=== PATIENT | male | born 1965 | race Caucasian/White ===

== ENCOUNTER 2022-04-12 17:03 | Emergency (ER) | payer OTHER ==
[~2022-04-12] VITALS: Ht 182.9 cm; Wt 93.0 kg
[~2022-04-12 17:03] MED LIST: DOXYCYCLINE HY100 MG PO; PERCOCET 5-3251 EACH PO
[2022-04-12] MEDS ORDERED: FAMOTIDINE20 MG PO (18:58)
[2022-04-12] MEDS ORDERED: VOLTAREN ARTHRI20 GM TOP (18:58)
[2022-04-12] MEDS ORDERED: TOPROL XL25 MG PO (18:58)
[2022-04-12] MEDS ORDERED: VENTOLIN HFA18 GM INH (18:59)
[2022-04-12] MEDS ORDERED: FLUTICASONE-SA1 EAC3 INH (19:00)
[2022-04-12] MEDS ORDERED: WARFARIN SODIUM5 MG PO (19:19)
[2022-04-12] MEDS ORDERED: LOVENOX80 MG/0.8 SUB-Q (19:19)
--- NOTE | 2022-04-13 06:33 | EKG ---
[facility] [address] [facility] [place], [place] [address] Signed Atrial flutter with 2:1 AV conduction Abnormal ECG No previous ECGs available Confirmed by MARIAM KHALIL MD ([id number]) on 04/13/2022 6:33:21 AM Electronically Signed By: MARIAM KHALIL MD 04/13/22 0633 PATIENT NAME: GINA TO Electrocardiogram DATE OF : 67 PHYSICIAN: MARIAM KHALIL MD REPORT #: [id number] REPORT IS CONFIDENTIAL AND NOT TO BE RELEASED WITHOUT AUTHORIZATION
== END 2022-04-12 20:12 | disposition home or self-care (01) ==
LOC: ED 17:03
DX: I48.91 Unspecified atrial fibrillation (principal); I48.92 Unspecified atrial flutter; J45.909 Unspecified asthma, uncomplicated; Z88.0 Allergy status to penicillin; Z91.048 Other nonmedicinal substance allergy status; Z79.899 Other long term (current) drug therapy
CPT/HCPCS: 36415; 71045; 80053; 83735; 83880; 84484; 85025; 85610; 85730; 93005; 93010; 96374; 99285-25; J1650

== ENCOUNTER 2022-04-19 09:14 | Observation (INO) | payer OTHER ==
[~2022-04-19] VITALS: Ht 182.9 cm; Wt 91.8 kg
[~2022-04-19 09:14] MED LIST changes: +FAMOTIDINE20 MG PO; +FLUTICASONE-SA1 EAC3 INH; +LOVENOX80 MG/0.8 SUB-Q; +TOPROL XL25 MG PO; +VENTOLIN HFA18 GM INH; +VOLTAREN ARTHRI20 GM TOP; +WARFARIN SODIUM5 MG PO
--- OUTSIDE RECORDS SUMMARY | 2022-04-19 09:24 | XMS ---
PreManage Notification: GINA TO Security Police Booking Officer Events No recent Security Events currently on file CRITERIA MET - [facility] - 2 Visits in 30 Days CARE PROVIDERS There are no care providers on record at this time. Mallory has no Care Guidelines for this patient. [facility] (12 MO.) [facility] NOTE: Visits indicate total known visits. ED[facility] VISIT TRACKING (12 MO.) 04[facility]19[facility]2022 09:15 [facility] COMPLAINT: - IRREGULAR HEART BEAT 04/12/2022 17:04 [facility] [place] TYPE: Emergency COMPLAINT: - RAPID HEART RATE DIAGNOSES: - Unspecified atrial fibrillation - Other nonmedicinal substance allergy status - Allergy status to penicillin - Unspecified atrial flutter - Tachycardia, unspecified - Other intermodal truck driver (current) drug therapy - Unspecified asthma, uncomplicated INPATIENT VISIT TRACKING (12 MO.) No inpatient visits to display in this time frame [email or web address]
[2022-04-19] MEDS ORDERED: LANOXIN125 MCG PO (11:41)
--- NOTE | 2022-04-19 15:55 | EKG ---
[facility] [address] [facility] [place] [address] Signed Atrial flutter with 2:1 AV conduction Abnormal ECG When compared with ECG of 12-APR-2022 17:04, No significant change was found Confirmed by BEATRIS HINSON MD ([id number]) on 04/19/2022 3:55:39 PM Electronically Signed By: BEATRIS HINSON MD 04/19/22 1555 PATIENT NAME: GINA TO LYNDON Electrocardiogram DATE OF : 67 PHYSICIAN: BEATRIS HINSON MD REPORT #: [id number] REPORT IS CONFIDENTIAL AND NOT TO BE RELEASED WITHOUT AUTHORIZATION
--- NOTE | 2022-04-19 16:00 | NUR ---
CARDIZEM GTT HUNG AT 5 MG/HR. EDUCATION ON CARDIZEM GIVEN.
--- NOTE | 2022-04-19 16:33 | NUR ---
57 YEAR OLD MALE PATIENT ADMITTED TO CCU FROM ED VIA STRETCHER WITH DX OF AFLUTTER. PATIENT RECIEVED CARDIZEM IV, DIGOXIN PO, LOPRESSOR PO. IN ED. PATIENT HAS BEEN IN ED IS THE PAST FOR AFLUTTER RVR, WAS DISCHARGED ON CARDIZEM PO. UPON ADMIT TO CCU PATIENT IS AWAKE ALERT AND ORIENTED. DENEIS PAIN OF SHORTNESS OF BREATH E[facility] OFFICERS ARE WITH PATIENT.HR-120. ADMISSION PROCESS STAARTED.
--- NOTE | 2022-04-19 17:00 | NUR ---
SEE EMAR FOR TITRATION OF CARDIZEM GTT. PATIENT IS W/OO C/O.
[2022-04-19] MEDS ORDERED: TOPROL XL50 MG PO (17:54)
[2022-04-19] MEDS ORDERED: VITAMIN D325 MC2 PO (17:56)
[2022-04-19] MEDS ORDERED: TRIAMCINOLONE A15 G1 TOP (17:59)
--- NOTE | 2022-04-19 19:05 | NUR ---
TOOK DINNER WELL. BETZAIDA BONNER GTT INFUSING AT 5 MG/HR. DR HINSON HAS BEEN UPDATE ON PATEINT. GOAL FOR HR IS 60-80. VOIDED 60 ML OF CLEAR YELLOW URINE.
--- NOTE | 2022-04-19 20:00 | NUR ---
SHIFT ASSESMENT COMPLETED. PATIENT REPORTS LEFT SHOULDER PAIN 03/09. ICE LUANA APPLIED. DENIES CHEST PAIN OR SOB. REMAINS IN A-FLUTTER. VS STABLE. CALL LILGHT IN REACH. CAN MAKE NEEDS KNOWN. TWO INMATE GUARDS AT BEDSIDE.
--- NOTE | 2022-04-19 21:00 | NUR ---
DR HINSON NOTIFIED OF BP OF 89/58 MAP 69. ORDERS RECIEVED FOR A ONE TIME 500ML LR BOLUS. ORDERS TO TRY AND MAINTAIN CARDIZEM GTT AT 5MG/HR IF PRESSURES ALLOW. ALSO NOTIFIED OF PATIENTS LEFT SHOULDER PAIN UNRESOLVED WITH TYLENOL, HEAT, AND ICE. HE STATED HE WOULD ORDER SOMETHING MORE.
--- NOTE | 2022-04-19 22:19 | NUR ---
500ML LR BOLUS COMPLETED. VS STABLE. CARDIZEM REMAINS AT 5MG/HR. PATIENT HAS HEAT PACK TO LEFT SHOULDER. CALL LIGHT IN REACH. CAN MAKE NEEDS KNOWN.
--- NOTE | 2022-04-20 00:12 | NUR ---
PATIENT UP TO THE BEDSIDE TO VOID USING URIANL. VS STABLE. REMAINS IN A FLUTTER. CALL LIGHT IN REACH AND CAN MAKE NEEDS KNOWN.
--- NOTE | 2022-04-20 02:30 | NUR ---
PATIENT RESTING IN BED WITH EYES CLOSED. RESPIRATIONS EVEN AND UNLABORED. VS STABLE. CARDIZEM GTT REMIANS AT 5MG/HR. TWO GUARDS REMAIN AT BEDSIDE.
--- NOTE | 2022-04-20 04:00 | NUR ---
RESTING IN BED. RESPIRATIONS EVEN AND UNLABORED. VS STABLE
--- NOTE | 2022-04-20 06:29 | NUR ---
PATIENT CALLED TO USE THE BEDSIDE URINAL. INDEPENDENT AMBULATION TO SIDE OF THE BED. PROVIDED A WET RAG TO WASH HIS FACE. REQUESTED PRN MEDS TO MANAGE LEFT SHOULDER PAIN. RATES PAIN 6/10.
--- NOTE | 2022-04-20 07:10 | NUR ---
MED REC COMPLETE
--- NOTE | 2022-04-20 07:44 | NUR ---
PATIENT REPORT RECIEVED FROM VICE PRESIDENT OF PRODUCT MARKETING RN. PATIENT RESTING IN BED WITH 2 GAURDS AT THE BEDSIDE. VICE PRESIDENT OF PRODUCT MARKETING HERE AND DOING THE ECHO AT THIS TIME. NO OTHER NEEDS. WILL CONTINUE TO CLOSELY MONITOR.
--- NOTE | 2022-04-20 08:20 | NUR ---
Spoke with pt and he denies needs. Correctional officers in the room. He does not use any DME at [facility] and will return there on dc.
--- NOTE | 2022-04-20 08:29 | NUR ---
PATIENT UP IN CHAIR, NURSE NOTFIED. CORECCTIONAL OFFICERS IN ROOM X2. CALL LIGHT WITHIN REACH.
--- NOTE | 2022-04-20 09:00 | NUR ---
THIS RN IN TO ASSESS PATIENT. PATIENTS BREATH SOUNDS CLEAR. BOWEL TONES ACTIVE. PATIENT REMAINS IN A.FLUTTER. EDUCATION PROVIDED. PATIENT UP TO THE CHAIR. PATIENT DENIES DIZZINESS WITH POSITION CHANGES OR AMBULATION. PATIENT DENIES PAIN. PER PATIENT HE HAD A BM YESTERDAY. NO EDEMA NOTED. STRONG PULSES. PATIENT HAS SHACKLES TO ALL EXTREMITIES. SKIN IS CDI. CMS INTACT. WILL CONTINUE TO CLOSELY MONITOR.
--- NOTE | 2022-04-20 10:02 | NUR ---
Received a message from Marlen at [facility], she is covering for Jana and requesting any notes on pt. FAxed H&P.
--- NOTE | 2022-04-20 11:00 | NUR ---
PATIENT ON CARDIZEM GTT AT 5MLS/HR HINSON IN TO SEE APTIENT AND REVIEWED PLAN OF CARE WITH PATIENT. INCREASED GTT UP TO 7MLS/HR PER MD HINSON. WILL MONITOR BP AND THEN HAVE PATIENT WALK IF VITALS ARE STABLE. PATIENT HAS BEEN UP TO THE BATHROOM SEVERAL TIMES. WILL CONTINUE TO CLOSELY MONITOR.
--- NOTE | 2022-04-20 13:00 | NUR ---
PATIENT UP AND WALKING THE HALLWAY WITH HAND SUTURE WINDER AFTER EATING PER MDS ORDERS. PATIENTS HR REMAINED IN THE 80'S. WILL CONTINUE TO MONITOR AND UPDATE MD HINSON OF RESULTS. WILL CONTINUE TO CLOSELY MONITOR.
--- NOTE | 2022-04-20 14:00 | NUR ---
MD UPDATED AND ORDERED PO CARDIZEM 60MG. WILL TURN GTT OFF IN 1 HOUR AFTER PO CARDIZEM. PATIENT RESTING IN BED. PATIENT UPDATED ON PLAN OF CARE AND AGREEABLE TO PLAN OF CARE. WILL CONTINUE TO CLSOELY MONITOR. PATIENT IS GETTING UP AND USING THE BATHROOM NEEDED WITH GAURDS AT THE BEDSIDE.
--- NOTE | 2022-04-20 17:30 | NUR ---
PATIENT AT DINNER AND TOLERATED WELL. PATIENT RESTING I NBED. PATIENTS ASSESSMENT HAS REMAINED UNCHANGED THROUGHOUT THE DAY. PATIENT REMAINS IN A. FLUTTER. CALL LIGHT IN REACH AND CALLS APPROPRIATELY. WILL CONTINUE TO CLOSELY MONITOR.
--- NOTE | 2022-04-20 18:21 | NUR ---
CALLED MD KHALIL AND UPDATED MD THAT PATIENTS HR INCREASED WITH GETTING UP TO THE BATHROOM THE LAST SEVERAL TIMES. HR INCREASED TO 130-140. PATIENTS HR BACK TO 90-100'S AT REST. PER MD WILL GIVE CARDIZEM DOSE EARLIER AT 1900 AND MONITOR EFFECTIVENESS. WILL UPDATE IRON SETTER STAFF TO MONITOR AND UPDATE MD IF NOT EFFECTIVE. NO OTHER NEEDS AT THIS TIME.
--- NOTE | 2022-04-20 20:27 | NUR ---
PATIENT RESTING IN BED. VS STABLE. TWO GUARDS FROM THE PRISION AT BEDSIDE. PATIENT REPORTS PAIN 5/10 TO LEFT SHOULDER; IMPROVED FROM YESTERDAY. PRN MEDS GIVEN. CALL LIGHT IN REACH.
--- NOTE | 2022-04-20 22:00 | NUR ---
PATIENT RESTING IN BED. WET WASH CLOTH PROVIDED TO WASH FACE. VS STABLE. REMAINS IN A-FLUTTER WITH HR IN THE 70'S. CALL LIGHT IN REACH AND CAN MAKE NEEDS KNOWN.
--- NOTE | 2022-04-21 | NUR ---
RESTING IN BED WITH EYES CLOSED. RESPIRATIONS EVEN AND UNLABORED. NO SIGNS OR DISTRESS. VS STABLE.
--- NOTE | 2022-04-21 01:33 | NUR ---
WOKE PATIENT UP TO TAKE PO MEDICATION. VS STABLE. TAKING PO AND VOIDING ADEQUATELY. TWO GUARDS REMAIN AT BEDSIDE.
--- NOTE | 2022-04-21 03:59 | NUR ---
PATIENT AMBULATED TO THE BATHROOM INDEPENDENTLY. VOIDING WITHOUT DIFFICULTIES. DENIES SOB OR CHEST PAIN. CALL LIGHT IN REACH.
--- NOTE | 2022-04-21 07:24 | NUR ---
PT UP TO RESTROOM. PERFORMED OWN AM CARE. WASH FACE, ORAL CARE, ABLULATED BACK TO BED. GUARDS IN ROOM. VITALS TAKEN. I& O'S RECORDED. FILLED CUP W/ICE WATER. PT WAS STEADY ON FEET HR SLIGHTLY EVEVATED. RN CAME IN TO MONITOR W/OIL PAINT SHADER. NO REPORTS OF PAIN. CALL LIGHT IN REACH.
--- NOTE | 2022-04-21 07:30 | NUR ---
PATIENT UP TO THE BATHROOM AND HR INCREASED TO 130'S WITH ACTIVITY. PATIENT BACK TO BED AND RESTING NOW. WILL MONITOR HR. REPORT RECIEVED FROM ALUMNI SECRETARY RN. PER REPORT PATIENTS HR INCREASED WITH ACTIVITY SEVERAL TIMES OVER NIGHT, BUT WAS WITHIN A NORMAL RANGE AT REST.
--- NOTE | 2022-04-21 08:57 | NUR ---
THIS RN IN WITH MD KHALIL. UPDATED ON PLAN OF CARE. PER MD WILL TRANSITION PATIENT TO EXTENDED RELEASE CARDIZEM AND START PATIENT ON DIGOXIN. PATIENT IS AGREEABLE TO PLAN OF CARE. PATIENT IS NERVOUS ABOUT GOING BACK TO THE FACILITY TO SOON AND NOT HAVING HIS HR CONTROLLED. PATIENT UPDATED ON PLAN OF ADDITION MEDS TODAY AND MONITORING AND WILL DETERMINE LATER HOW HE IS TOLERATING THE ADDITION MEDICATION. PATIENT ATE BREAKFAST. ASSESSMENT COMPLETED. BREATH SOUNDS CLEAR. BOWEL TONES ACTIVE. NO EDEMA NOTED. PATIENT HAS BILATERAL EOCI SHACKLES PRESENT. CMS INTACT. PATIENT DENIES DIZZINESS, BUT DOES FEEL THE PALPITATIONS. CALL LIGHT IN REACH AND PATIENT CALLLS APPROPRIATELY. WILL CONTINUE TO CLOSELY MONITOR.
--- NOTE | 2022-04-21 09:27 | NUR ---
THIS TRN IN TO GIVE DIGOXIN PER ORDERS. PATIENTS HR IS 129 AT THIS TIME WITH A BP OF 123/82. PATIENT FEELS PALPITATIONS. WILL GIVE PUSH OVER 5 MINUTES PER MEDICATION RECOMMENDATION.
--- NOTE | 2022-04-21 12:14 | NUR ---
THIS RN IN TO CHECK ON PATIENT THIS RN HAD A LONG CONVERSATION EARLIER ABOUT A.FLUTTER AND EDUCATION WAS PROVIDED. PATIENT HAD LOTS OF QUESTIONS AND WAS ABLE TO REPEAT BACK EDUCATION TO STAFF. WILL CONTINUE TO CLOSELY MONITOR. NO OTHER NEEDS AT THIS TIME. WILL CONTINUE TO CLOSELY MONITOR.
--- NOTE | 2022-04-21 14:30 | NUR ---
PATIENT LAYING IN BED TAKING A NAP AT THIS TIME. PATIENTS HR HAS TRENDED DOWN THIS AFTERNOON WHILE PATIENT IS AT REST, BUT PATIENTS HR WITH ACTIVITY IS STILL NOT WELL CONTROLLED. NO OTHER NEEDS AT THIS TIME. WILL ALLOW TO REST. 2 GAURDS REMAIN AT THE PATIENTS BEDSIDE.
--- NOTE | 2022-04-21 16:55 | NUR ---
THIS RN WAS IN TO DO ASSESSMENT, GIVE MEDICATIONS, AND UPDATE PATIENT AND STAFF ON PLAN OF CARE. PATIENTS HR UP TO 130 WITH ACTIVITY AND PATIENT MORE ANXIOUS WHEN THINKING OF HIS HR AND GOING BACK TO THE FACILITY AND NOT BEING BETTER YET. EDUCATED PATIENT ON CURRENT PLAN OF CARE WITH MONITORING PATIENTS HR WITH THE CHANGE OF MEDICATIONS TODAY. PRN VISTARIL GIVEN PER ORDER. PRN TYLENOL FOR LEFT SHOULDER PAIN. PROVIDED PATIENT WITH CLEANINGING WIPES, PATIENT IS ABLE TO DO HIS BEDSIDE BATH ON HIS OWN. PATIENTS HR INCREASED TO 140'S WITH GETTING UP TO THE BEDSIDE. HR BACK TO 100'S AT REST. WILL CONTINUE TO CLOSELY MONITOR.
--- NOTE | 2022-04-21 18:20 | NUR ---
PATIENT RESTING IN BED AT THIS TIME. PATIENTS HR IS IN THE 80'S. WILL MONITOR WHAT HIS HR DOES WITH ACTIIVITY. PATIENT HAS 2 GAURDS AT THE BEDSIDE. NO NEEDS AT THIS TIME. WILL CONTINUE TO CLOSELY MONITOR.
--- NOTE | 2022-04-21 19:35 | NUR ---
NURSING ASSESMENT COMPLETED. PATIENT REPORTS PAIN TO LEFT SHOULDER 5/10. STANDING UP AT THE EDGE OF BED TO VOID IN URINAL. PATIENTS HR INCREASED TO 130'S WITH AMBULATION. REMAINS IN SCHACKLES WITH TWO GUARDS AT BEDSIDE. DISCUSSED MADICATION AND THE PLAN OF CARE. CALL LIGHT IN REACH AND CAN MAKE NEEDS KNOWN.
--- NOTE | 2022-04-21 22:15 | NUR ---
PATIENT REQUESTED PRN MED FOR ITCHING; VISTERIL GIVEN. PATIENT UP TO VOID TO BEDSIDE URINAL.
--- NOTE | 2022-04-22 | NUR ---
PATIENT RESTING IN BED WITH EYES CLOSED. RESPIRATIONS EVEN AND UNLABORED. VS STABLE. CALL LIGHT IN REACH. TWO GUARDS AT BEDSIDE.
--- NOTE | 2022-04-22 04:00 | NUR ---
PATIENT UP TO THE SIDE OF BED TO VOID IN URINAL. HR REMAIND < 90 WITH AMBULATION. CALL LIGHT IN REACH. CAN MAKE NEEDS KNOWN.
--- NOTE | 2022-04-22 04:51 | NUR ---
PATIENT CALLED REQUESTING TYLENOL AND WATER. THERMOSTAT INCREASED.
--- NOTE | 2022-04-22 07:30 | NUR ---
SHIFT REPORT RECIEVED FROM CHILD CUSTODY EVALUATOR RN. PATIENT HAD A GOOD NIHGT. PATIENTS HR WAS LESS THAN 100 EVEN WITH ACTIVITY. PATIENT HAS 2 GAURDS AT THE BEDSIDE. NO OTHER NEEDS AT THIS TIME. WILL CONTINUE TO CLOSELY MONITOR.
[2022-04-22] MEDS ORDERED: DILTIAZEM 24HR240 M1 PO (08:13)
[2022-04-22] MEDS ORDERED: DIGITEK125 MCG PO (08:13)
[2022-04-22] MEDS ORDERED: WARFARIN SODIUM5 MG PO (08:13)
--- NOTE | 2022-04-22 08:40 | NUR ---
PATIENT SITTING UP AT THE BEDSIDE. PATIENT ASSESSMENT COMPLETED. PATIENTS HR 60'S WHILE SLEEPING, 80-100'S AT REST. WILL GIVE AM MEDICATIONS AND REASSES HOW PATIENT DOES WITH ACTIVITY. PATIENTS BREATH SOUNDS ARE CLEAR. BOWEL TONES ACTIVE. MD RASCH IN TO TALK WITH PATIENT THIS AM ABOUT HIS PLAN OF CARE. PATIENTS HR HAS STAYED STABLE OVER NIGHT EVEN WITH GETTING UP AND MOVING PER REPORT. PER MD PATIENT MAY DISCHARGE BACK TO THE FACILITY TODAY. NO OTHER NEEDS AT THIS TIME. WILL CONTINUE TO CLOSELY MONITOR.
--- NOTE | 2022-04-22 10:42 | NUR ---
REPORT GIVEN TO ASCENCION PHELPS AND MD KHALIL. PATIENTS HR UP TO 150 WITH ACTIVITY THIS AM. PER MD ALLOW PATIENT TO REST AND SEE IF HIS HR RECOVERS.
--- NOTE | 2022-04-22 10:44 | NUR ---
REPORT RECEIVED FROM MATTIE HE. CARE OF PT ASSUMED AT THIS TIME. PT HEART RATE INTHE 100-130. REMAINS IN A FLUTTER.
--- NOTE | 2022-04-22 11:37 | NUR ---
PT AMBULATED TO BATHROOM. HEART RATE 130-140 WITH EXERTION.
--- NOTE | 2022-04-22 12:48 | NUR ---
EOCI RN GIVE NURSE TO NURSE DISCHARGE REPORT. PT GIVEN A THREE DAY SUPPLY OF CARDIZEM AND DIGOXIN. PRESCRIPTIONS FOR CARDIZEM, DIGOXIN, AND WARFARIN SENT WITH PAPER WORK.
--- NOTE | 2022-04-22 13:20 | NUR ---
iv dc'd. pt given discharge instructions. all questions answered. pt verbalized understanding all instructions. three days worth of medication given to [employer] bonds upon discharge. pt escorted out of ED to awaiting secured vehicle.
== END 2022-04-22 13:07 | disposition home or self-care (01) ==
LOC: ED 09:14 → CCU 09:16
PROVIDERS: ADMIT Internal Medicine; ATTEND Internal Medicine
DX: I48.92 Unspecified atrial flutter (principal); J45.909 Unspecified asthma, uncomplicated; I34.0 Nonrheumatic mitral (valve) insufficiency; Z20.822 Contact with and (suspected) exposure to COVID-19; Z79.01 Long term (current) use of anticoagulants; Z88.1 Allergy status to other antibiotic agents
CPT/HCPCS: 36415; 80048; 83735; 84443; 85025; 85610; 87502; 93005; 93010; 93306; A9270; C9803; J1160; J3475; J7121; Q0177; U0003

== ENCOUNTER 2022-04-25 13:57 | Inpatient (IN) | payer OTHER ==
[~2022-04-25] VITALS: Ht 182.9 cm; Wt 91.6 kg
[~2022-04-25 13:57] MED LIST changes: +DIGITEK125 MCG PO; +DILTIAZEM 24HR240 M1 PO; +LANOXIN125 MCG PO; +TOPROL XL50 MG PO; +TRIAMCINOLONE A15 G1 TOP; +VITAMIN D325 MC2 PO
--- OUTSIDE RECORDS SUMMARY | 2022-04-25 14:04 | XMS ---
PreManage Notification: GINA TO Security Sensory Scientist Events No recent Security Events currently on file CRITERIA MET - [facility] - 2 Visits in 30 Days CARE PROVIDERS There are no care providers on record at this time. Mallory has no Care Guidelines for this patient. Nancy VISIT COUNT (12 MO.) 3 [facility] [place] [facility] TOTAL 3 NOTE: Visits indicate total known visits. ED/C VISIT TRACKING (12 MO.) 04/25/2022 13:57 [facility] [place] TYPE: Emergency COMPLAINT: - CHEST PAIN 04/19/2022 09:15 [facility] [place] TYPE: Emergency COMPLAINT: - IRREGULAR HEART BEAT 04/12/2022 17:04 [facility] [place] TYPE: Emergency COMPLAINT: - RAPID HEART RATE DIAGNOSES: - Unspecified atrial fibrillation - Other nonmedicinal substance allergy status - Allergy status to penicillin - Unspecified atrial flutter - Tachycardia, unspecified - Other detention (current) drug therapy - Unspecified asthma, uncomplicated INPATIENT VISIT TRACKING (12 MO.) 04/19/2022 09:16 [facility] [place] TYPE: Observation COMPLAINT: - ATRIAL FLUTTER WITH RAPID VENTRICULAR RATE DIAGNOSES: - Allergy status to other antibiotic agents - Unspecified atrial flutter - Nonrheumatic mitral (valve) insufficiency - Contact with and (suspected) exposure to COVID-19 - Unspecified asthma, uncomplicated - Palpitations - assisted (current) use of anticoagulants [email or web address]
[2022-04-26] MEDS ORDERED: WIXELA 100-501 EACH INH (08:36)
[2022-04-26] MEDS ORDERED: LIDOCAINE HC28.35 GM TOP (08:38)
[2022-04-26] MEDS ORDERED: ACETAMINOPHEN325 M1 PO (08:42)
--- NOTE | 2022-04-26 08:57 | EKG ---
[facility] [address] [facility] [place], [place] [address] Signed Atrial flutter with 2:1 AV conduction Abnormal ECG No previous ECGs available Confirmed by MARIAM KHALIL MD ([id number]) on 04/26/2022 8:57:28 AM Electronically Signed By: MARIAM KHALIL MD 04/26/22 0857 PATIENT NAME: GINA TO Electrocardiogram DATE OF : 67 PHYSICIAN: MARIAM KHALIL MD REPORT #: [id number] REPORT IS CONFIDENTIAL AND NOT TO BE RELEASED WITHOUT AUTHORIZATION
[2022-04-30] MEDS ORDERED: METOPROLOL TART25 MG PO (08:10)
[2022-05-03] MEDS ORDERED: DIGOXIN125 MCG PO (19:02)
[2022-05-03] MEDS ORDERED: DILTIAZEM 24HR240 M1 PO (19:02)
[2022-05-03] MEDS ORDERED: DIGOX250 MCG PO (19:02)
== END 2022-05-03 20:25 | disposition short-term general hospital (02) | DRG 310 ==
LOC: ED 13:57 → CCU 13:58
PROVIDERS: ADMIT Internal Medicine; ATTEND Internal Medicine
DX: I48.92 Unspecified atrial flutter (principal); Z20.822 Contact with and (suspected) exposure to COVID-19; J45.909 Unspecified asthma, uncomplicated; M25.512 Pain in left shoulder; U09.9 Post COVID-19 condition, unspecified; G89.29 Other chronic pain; Z88.0 Allergy status to penicillin; Z91.048 Other nonmedicinal substance allergy status
CPT/HCPCS: 36415; 71045; 80048; 80053; 80162; 83735; 84484; 85025; 85610; 87502; 93005; 93010; 96374; 96375; 96376; 99285-25; A9270; C9803; J1160; J3475; U0003

== ENCOUNTER 2022-05-17 08:47 | Emergency (ER) | payer OTHER ==
[~2022-05-17] VITALS: Ht 182.9 cm; Wt 91.6 kg
[~2022-05-17 08:47] MED LIST changes: +ACETAMINOPHEN325 M1 PO; +DIGOX250 MCG PO; +DIGOXIN125 MCG PO; +LIDOCAINE HC28.35 GM TOP; +METOPROLOL TART25 MG PO; +WIXELA 100-501 EACH INH
--- OUTSIDE RECORDS SUMMARY | 2022-05-17 08:50 | XMS ---
PreManage Notification: GINA TO Security Rope Maker Events No recent Security Events currently on file CRITERIA MET - [facility] - 2 Visits in 30 Days CARE PROVIDERS There are no care providers on record at this time. Mallory has no Care Guidelines for this patient. Nancy VISIT COUNT (12 MO.) 4 [facility] 4 NOTE: Visits indicate total known visits. [place] [place]ISIT TRACKING (12 MO.) 05/17/2022 08:[address] [facility] [place] TYPE: Emergency COMPLAINT: - HEART RACING, FLUTTERING 04/25/2022 13:57 [facility] [place] TYPE: Emergency COMPLAINT: - CHEST PAIN 04/19/2022 09:15 [facility] [place] TYPE: Emergency COMPLAINT: - IRREGULAR HEART BEAT 04/12/2022 17:04 [facility] [place] TYPE: Emergency COMPLAINT: - RAPID HEART RATE DIAGNOSES: - Unspecified atrial fibrillation - Other mcfp (current) drug therapy - Unspecified atrial flutter - Other nonmedicinal substance allergy status - Unspecified asthma, uncomplicated - Tachycardia, unspecified - Allergy status to penicillin INPATIENT VISIT TRACKING (12 MO.) 04/30/2022 12:00 [facility] [place] TYPE: Critical Care COMPLAINT: - ATRIAL FLUTTER DIAGNOSES: - Pain in left shoulder - Contact with and (suspected) exposure to COVID-19 - Other nonmedicinal substance allergy status - Contact with and (suspected) exposure to COVID-19 - Pain in left shoulder - Unspecified asthma, uncomplicated - Other chronic pain - Post COVID-19 condition, unspecified - Unspecified asthma, uncomplicated - Allergy status to penicillin - Allergy status to penicillin - Other chronic pain - Unspecified atrial flutter - Post COVID-19 condition, unspecified - Other nonmedicinal substance allergy status 04/19/2022 09:16 [facility] [place] TYPE: Observation COMPLAINT: - ATRIAL FLUTTER WITH RAPID VENTRICULAR RATE DIAGNOSES: - Allergy status to other antibiotic agents - Palpitations - Contact with and (suspected) exposure to COVID-19 - Unspecified atrial flutter - longterm (current) use of anticoagulants - Unspecified asthma, uncomplicated - Nonrheumatic mitral (valve) insufficiency [email or web address]
--- NOTE | 2022-05-18 15:29 | EKG ---
[facility] [address] [facility] [place] [address] Signed Normal sinus rhythm Normal ECG When compared with ECG of 25-APR-2022 13:56, Sinus rhythm has replaced Atrial flutter Vent. rate has decreased BY [address] no longer elevated in Inferior leads Nonspecific T wave abnormality no longer evident in Lateral leads Confirmed by BEATRIS HINSON MD ([id number]) on 05/18/2022 3:29:34 PM Electronically Signed By: BEATRIS HINSON MD 05/18/22 1529 PATIENT NAME: GINA TO Electrocardiogram DATE OF : 67 PHYSICIAN: BEATRIS HINSON MD REPORT #: [id number] REPORT IS CONFIDENTIAL AND NOT TO BE RELEASED WITHOUT AUTHORIZATION
== END 2022-05-17 10:36 | disposition home or self-care (01) ==
LOC: ED 08:47
DX: I48.92 Unspecified atrial flutter (principal); Z88.0 Allergy status to penicillin; Z91.048 Other nonmedicinal substance allergy status; J45.909 Unspecified asthma, uncomplicated; Z79.01 Long term (current) use of anticoagulants; Z79.899 Other long term (current) drug therapy
CPT/HCPCS: 92960; 93005; 93010; 99284-25; J2704; J7030

== ENCOUNTER 2022-09-06 09:41 | Emergency (ER) | payer OTHER ==
[~2022-09-06] VITALS: Ht 182.9 cm; Wt 93.0 kg
--- OUTSIDE RECORDS SUMMARY | 2022-09-06 09:49 | XMS ---
PreManage Notification: GINA TO Security Churn Driller Events No recent Security Events currently on file CRITERIA MET - 6 ED Visits in 6 Months CARE PROVIDERS There are no care providers on record at this time. Mallory has no Care Guidelines for this patient. Nancy VISIT COUNT (12 MO.) 6 [facility] TOTAL 6 NOTE: Visits indicate total known visits. ED/C VISIT TRACKING (12 MO.) 09/06/2022 09:41 [facility] [place] TYPE: Emergency COMPLAINT: - IRREGULAR HEART RATE 06/06/2022 08:12 [facility] [place] TYPE: Emergency COMPLAINT: - FALL, HEAD, L SIDE BODY PAIN/INJURY DIAGNOSES: - joint terminal attack controller (current) use of anticoagulants - Allergy status to penicillin - Unspecified injury of head, initial encounter - Fall in (into) shower or empty bathtub, initial encounter - Other nonmedicinal substance allergy status - Cervicalgia - Unspecified asthma, uncomplicated - Other terminal supervisor (current) drug therapy - Unspecified sprain of left wrist, initial encounter 05/17/2022 08:48 [facility] [place] TYPE: Emergency COMPLAINT: - HEART RACING, FLUTTERING DIAGNOSES: - Allergy status to penicillin - joint terminal attack controller (current) use of anticoagulants - Other terminal supervisor (current) drug therapy - Unspecified atrial flutter - Unspecified asthma, uncomplicated - Other nonmedicinal substance allergy status 04/25/2022 13:57 [facility] [place] TYPE: Emergency COMPLAINT: - CHEST PAIN 04/19/2022 09:15 [facility] [place] TYPE: Emergency COMPLAINT: - IRREGULAR HEART BEAT 04/12/2022 17:04 [facility] [place] TYPE: Emergency COMPLAINT: - RAPID HEART RATE DIAGNOSES: - Unspecified atrial fibrillation - Other nursing home (current) drug therapy - Unspecified atrial flutter [...] to COVID-19 - Unspecified atrial flutter - long-term (current) use of anticoagulants - Unspecified asthma, uncomplicated - Nonrheumatic mitral (valve) insufficiency [email or web address]
--- NOTE | 2022-09-08 06:50 | EKG ---
[facility] [address] [facility] [place] [address] Signed Sinus tachycardia T wave abnormality, consider inferior ischemia Abnormal ECG When compared with ECG of 17-MAY-2022 09:20, Vent. rate has increased BY [address] elevation now present in Inferior leads Confirmed by MARIAM KHALIL MD ([id number]) on 09/08/2022 6:50:29 AM Electronically Signed By: MARIAM KHALIL MD 09/08/22 0650 PATIENT NAME: GINA TO Electrocardiogram DATE OF : 67 PHYSICIAN: MARIAM KHALIL MD REPORT #: [id number] REPORT IS CONFIDENTIAL AND NOT TO BE RELEASED WITHOUT AUTHORIZATION
--- NOTE | 2022-09-08 06:54 | EKG ---
[facility] [address] [place] [address] Signed Normal sinus rhythm Normal ECG When compared with ECG of 06-SEP-2022 09:54, (Unconfirmed) Vent. rate has decreased BY [address] no longer elevated in Inferior leads ST no longer elevated in Anterior leads Confirmed by MARIAM KHALIL MD ([id number]) on 09/08/2022 6:54:01 AM Electronically Signed By: MARIAM KHALIL MD 09/08/22 0654 PATIENT NAME: GINA TO Electrocardiogram DATE OF : 67 PHYSICIAN: MARIAM KHALIL MD REPORT #: [id number] REPORT IS CONFIDENTIAL AND NOT TO BE RELEASED WITHOUT AUTHORIZATION
== END 2022-09-06 12:37 | disposition home or self-care (01) ==
LOC: ED 09:41
DX: I48.91 Unspecified atrial fibrillation (principal); J45.909 Unspecified asthma, uncomplicated; Z88.0 Allergy status to penicillin; Z91.048 Other nonmedicinal substance allergy status; Z79.899 Other long term (current) drug therapy
CPT/HCPCS: 92960; 93005; 93010; 99152; 99285-25; J2704; J7030

== ENCOUNTER 2024-12-11 15:36 | Emergency (ER) | payer OTHER ==
[~2024-12-11] VITALS: Ht 182.9 cm; Wt 95.6 kg
[2024-12-11] MEDS ORDERED: METOPROLOL SUCC25 MG PO (15:43)
[2024-12-11 15:52] LABS: BASOPHILS 1.1 % (0-2); EOSINOPHILS 1.8 % (0-6); HEMOGLOBIN 15.8 g/dL (12.0-18.0); LYMPHOCYTES 21.8 % (24-44); MCH 31.5 (27-36); MCHC 34.3 g/dl (30-36); MCV 91.9 fl (81-99); MONOCYTES 11.1 % (0-12); NEUTROPHILS 64.2 % (39-80); PLATELET COUNT 305 K/uL (140-440); RBC 5.01 M/ul (4.3-5.7); RDW 12.7 (10.5-15.0)
[2024-12-11] MEDS ORDERED: dilTIAZem HCL 25 MG/5 ML VIAL IV ONE (16:00)
[2024-12-11 16:01] LABS: ALBUMIN/GLOBULIN RATIO 1.11 (1.1-2.4); ANION GAP 11.1 (7-21); BILIRUBIN, TOTAL 0.3 mg/dL (0.2-1.0); BUN/CREATININE RATIO 14.03 (6.0-28.6); CREATININE, SERUM 1.14 mg/dL (0.70-1.30); MAGNESIUM 2.1 mg/dL (1.8-2.4); POTASSIUM 4.1 mmol/L (3.5-5.1); PROTEIN, TOTAL 7.6 g/dL (6.4-8.2)
[2024-12-11] MEDS ORDERED: FLECAINIDE ACE150 MG PO (16:06)
[2024-12-11] MEDS ORDERED: propofoL 200 MG/20 ML VIAL IV ONE ×2 (17:15→17:30)
[2024-12-11] MEDS ORDERED: MAGNESIUM SULFATE 2 GM/50 ML BAG IV ONE (17:30)
[2024-12-11 18:54] VITALS: BP 149/101
--- NOTE | 2024-12-12 15:49 | EKG ---
[facility] [address] [facility] [place], [place] [address] Signed Atrial fibrillation Abnormal ECG When compared with ECG of 11-DEC-2024 15:49, (Unconfirmed) No significant change was found Confirmed by José Antonio Schwartz DO ([id number]) on 12/12/2024 3:49:38 PM Electronically Signed By: JOSÉ ANTONIO SCHWARTZ DO 12/12/24 1549 PATIENT NAME: CYNTHIA TOAUGUSTINE HANEY Electrocardiogram DATE OF : 67 PHYSICIAN: JOSÉ ANTONIO SCHWARTZ DO REPORT #: [id number] REPORT IS CONFIDENTIAL AND NOT TO BE RELEASED WITHOUT AUTHORIZATION
--- NOTE | 2024-12-12 15:49 | EKG ---
[facility] [address] [facility] [place] [address] Signed Atrial fibrillation with rapid ventricular response Abnormal ECG When compared with ECG of 06-SEP-2022 11:32, Atrial fibrillation has replaced Sinus rhythm Vent. rate has increased BY 52 BPM Nonspecific T wave abnormality has replaced inverted T waves in Inferior leads Confirmed by Ronaldo Schwartz DO ([id number]) on 12/12/2024 3:49:31 PM Electronically Signed By: RONALDO SCHWARTZ DO 12/12/24 1549 PATIENT NAME: GINA TO Electrocardiogram DATE OF : 67 PHYSICIAN: RONALDO SCHWARTZ DO REPORT #: [id number] REPORT IS CONFIDENTIAL AND NOT TO BE RELEASED WITHOUT AUTHORIZATION
--- NOTE | 2024-12-12 15:50 | EKG ---
[facility] [address] [facility] [place] [address] Signed Sinus rhythm with 1st degree AV block Otherwise normal ECG When compared with ECG of 11-DEC-2024 17:16, (Unconfirmed) Sinus rhythm has replaced Atrial fibrillation Confirmed by José Antonio Schwartz DO ([id number]) on 12/12/2024 3:50:12 PM Electronically Signed By: JOSÉ ANTONIO SCHWARTZ DO 12/12/24 1550 PATIENT NAME: GINA TO LYNDON Electrocardiogram DATE OF : 67 PHYSICIAN: JOSÉ ANTONIO SCHWARTZ DO REPORT #: [id number] REPORT IS CONFIDENTIAL AND NOT TO BE RELEASED WITHOUT AUTHORIZATION
== END 2024-12-11 19:03 | disposition home or self-care (01) ==
LOC: ED 15:36
PROVIDERS: Emergency Medicine
DX: I48.0 Paroxysmal atrial fibrillation (principal); J45.909 Unspecified asthma, uncomplicated; Z88.0 Allergy status to penicillin; Z91.048 Other nonmedicinal substance allergy status; Z79.899 Other long term (current) drug therapy
CPT/HCPCS: 36415; 71045; 80053; 83735; 85025; 92960; 93005; 93010; 94799; 99152; 99285-25; J2704; J3475

== ENCOUNTER 2025-04-27 02:32 | Emergency (ER) | payer OTHER ==
[~2025-04-27] VITALS: Ht 182.9 cm; Wt 95.0 kg
[~2025-04-27 02:32] MED LIST changes: +FLECAINIDE ACE150 MG PO; +METOPROLOL SUCC25 MG PO
[2025-04-27 02:47] LABS: BASOPHILS 1.2 % (0.2-1.2); EOSINOPHILS 2.7 % (0.8-7.0); LYMPHOCYTES 37.8 % (21.8-53.1); MCH 31.1 PG (25.7-32.2); MCHC 34.3 g/dL (32.3-36.5); MCV 90.7 fL (79.0-92.2); MONOCYTES 9.8 % (5.3-12.2); NEUTROPHILS 48.2 % (34.0-67.9); RBC 4.92 M/uL (4.63-6.08)
[2025-04-27 03:15] LABS: ALT (SGPT) 20.0 U/L (14-59); AST (SGOT) 17.0 U/L (15-37); GLOMERULAR FILTRATION RATE,EST 68.0 mL/min (>60); PROTEIN, TOTAL 7.2 g/dL (6.4-8.2); UREA NITROGEN 19.0 mg/dL (7-18)
[2025-04-27 03:47] VITALS: BP 138/81
--- NOTE | 2025-04-28 21:19 | EKG ---
[facility] [address] [facility] [place] [address] Signed Sinus rhythm with 1st degree AV block Otherwise normal ECG When compared with ECG of 11-DEC-2024 17:57, QT has lengthened Confirmed by José Antonio Schwartz DO ([id number]) on 04/28/2025 9:19:12 PM Electronically Signed By: JOSÉ ANTONIO SCHWARTZ DO 04/28/259 PATIENT NAME: CYNTHIA TOAUGUSTINE HANEY Electrocardiogram DATE OF : 67 PHYSICIAN: JOSÉ ANTONIO SCHWARTZ DO REPORT #: [id number] REPORT IS CONFIDENTIAL AND NOT TO BE RELEASED WITHOUT AUTHORIZATION
== END 2025-04-27 03:48 | disposition other institution, planned readmission (95) ==
LOC: ED 02:32
PROVIDERS: Internal Medicine
DX: I48.0 Paroxysmal atrial fibrillation (principal); J45.909 Unspecified asthma, uncomplicated; Z88.0 Allergy status to penicillin; Z91.048 Other nonmedicinal substance allergy status; Z79.899 Other long term (current) drug therapy
CPT/HCPCS: 36415; 80053; 80307; 83735; 84443; 84484; 85025; 93005; 93010; 99285